=== PATIENT | male | born 1960 | race Caucasian/White ===

== ENCOUNTER → 2016-10-28 | Outpatient (CLI) | payer OTHER ==
--- NOTE | 2016-10-29 10:52 | ECHOF ---
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 This was a technically good study. The left ventricular size is normal. There is moderate concentric left ventricular hypertrophy. Overall left ventricular systolic function is normal with, an EF between 55 - 60 %. The right ventricle is mildly enlarged. LA is moderately dilated 34-39 ml/m2 The right atrium is normal in size. The aortic valve is trileaflet and appears structurally normal. The mitral valve is normal. Mild mitral regurgitation is present. Trace tricuspid regurgitation present. The right ventricular systolic pressure, as measured by Doppler, is 32.70mmHg. Trace/mild (physiologic) pulmonic regurgitation. The aortic root size is normal. Normal inferior vena cava with normal inspiratory collapse consistent with estimated right atrial pressure of 5 mmHg. There is no pericardial effusion. CONCLUSIONS -------- 1. Sinus rhythm. 2. Trace tricuspid regurgitation present. 3. The right ventricular systolic pressure, as measured by Doppler, is 32.70mmHg. 4. Trace/mild (physiologic) pulmonic regurgitation. 5. The aortic root size is normal. 6. Normal inferior vena cava with normal inspiratory collapse consistent with estimated right atrial pressure of 5 mmHg. 7. There is no pericardial effusion. 8. This was a technically good study. 9. There is moderate concentric left ventricular hypertrophy. 10. Overall left ventricular systolic function is normal with, an EF between 55 - 60 %. 11. The right ventricle is mildly enlarged. 12. LA is moderately dilated 34-39 ml/m2 13. The aortic valve is trileaflet and appears structurally normal. 14. The mitral valve is normal. 15. Mild mitral regurgitation is present. OPERATOR SUPPLY: Kala Llanes RDCS
== END ==
LOC: RADECHMAIN 15:33
PROVIDERS: ATTEND Physician Assistant
DX: I08.1 Rheumatic disorders of both mitral and tricuspid valves (principal); I51.7 Cardiomegaly
CPT/HCPCS: 93306

== ENCOUNTER → 2017-04-01 | Outpatient (CLI) | payer OTHER ==
--- NOTE | 2017-04-01 08:29 | MR ---
EXAMINATION TYPE: MR cervical spine wo con DATE OF EXAM: 04/01/2017 COMPARISON: CT scan cervical spine 10/20/2013 HISTORY: cervicalgia TECHNIQUE: Multiplanar, multisequence images of the cervical spine were acquired. C2-C3: Uncovertebral joint hypertrophy greater on the left with disc bulging capped by spur. Marked l eft-sided facet arthropathy results in moderate to severe left-sided foraminal encroachment. No Canal stenosis. C3-C4: Degenerative disc disease with facet arthropathy greater on the left. Bilateral uncovertebral joint hypertrophy and mild bilateral foraminal encroachment. Left paracentral disc bulging but no can al stenosis. C4-C5: Degenerative disc disease with bilateral facet arthropathy and uncovertebral joint hypertrophy with mild bilateral foraminal encroachment. No Canal stenosis. Ligamentum flavum hypertrophy noted. C5-C6: Severe degenerative disc disease with osteophytic spur formation and cervical spondylosis. Fac et arthropathy and uncovertebral joint hypertrophy with posterior spondylosis and disc bulging capped by spur. Findings result in borderline canal stenosis. Moderate bilateral foraminal encroachment. C6-C7: Severe degenerative disc disease with diffuse disc bulging. There is facet arthropathy. Modera te to severe right-sided foraminal encroachment and severe left-sided foraminal encroachment. Broad-b ased disc protrusion capped by spur results in significant canal stenosis. C7-T1: Severe degenerative disc disease with diffuse disc bulging more focal left paracentral disc pr otrusion. Mild to moderate effacement of thecal sac and mild canal stenosis. Mild to moderate bilater al foraminal encroachment. Cervical segments are intact. There is normal alignment. Abnormal signal within the spinal cord is s een at C7-T1 appears well-circumscribed and may represent a small syrinx. Myelomalacia prominent cent ral canal also the differential diagnosis. IMPRESSION: 1. Abnormal signal in the spinal cord at C7-T1 may relate to small syrinx, prominent central canal, o r myelomalacia. 2. Multilevel severe degenerative disc disease with disc bulging or protrusion as discussed above fin dings suggestive of canal stenosis C5-6 and C6-C7 3 multilevel foraminal encroachment as discussed ab ove most marked findings at C5-6.
== END | disposition home or self-care (01) ==
LOC: RADMRIMAIN 06:37
PROVIDERS: ATTEND Physical Medicine & Rehabilitation
DX: M50.11 Cervical disc disorder with radiculopathy, high cervical region (principal); M25.512 Pain in left shoulder
CPT/HCPCS: 72141

== ENCOUNTER 2017-08-09 01:49 | Emergency (ER) | payer OTHER ==
[2017-08-09 02:00] VITALS: RESP 18
--- NOTE | 2017-08-09 02:29 | XR ---
EXAM: XR Left Hand Complete, 3 or More Views CLINICAL HISTORY: Reason: Pain TECHNIQUE: Frontal, lateral and oblique views of the left hand. COMPARISON: No relevant prior studies available. FINDINGS: Bones/joints: Unremarkable. No acute fracture. No dislocation. Soft tissues: Unremarkable. IMPRESSION: No acute osseous findings.
--- NOTE | 2017-08-09 02:57 | ED ---
Wound/Laceration HPI - General Chief Complaint: Wound/Laceration Stated Complaint: Hand Laceration Time Seen by Provider: 08/09/17 02:02 Source: patient, RN notes reviewed, old records reviewed Mode of arrival: ambulatory Limitations: no limitations - History of Present Illness Initial Comments: This is a 57 year old male with CC of left thumb laceration. Patient was cutting marie for a project and the knife slipped. Patient reports that he has full range of motion of thumb. REports he had a tetanus shot last month. Reports he could not get this to stop bleeding. Denies any other symptoms. - Related Data Home Medications Medication Instructions Recorded Confirmed Dextroamphetamine/Amphetamine 30 mg PO DAILY 10/16/15 08/09/17 [Adderall] Allergies Allergy/AdvReac Type Severity Reaction Status Date / Time No Known Allergies Allergy Verified 08/09/17 02:01 Review of Systems ROS Statement: Those systems with pertinent positive or pertinent negative responses have been documented in the HPI. ROS Other: All systems not noted in ROS Statement are negative. Past Medical History Additional Past Medical History / Comment(s): kidney stones, History of Any Multi-Drug Resistant Organisms: None Reported Past Surgical History: Cholecystectomy, Orthopedic Surgery Past Psychological History: No Psychological Hx Reported Smoking Status: Never smoker Past Alcohol Use History: None Reported Past Drug Use History: None Reported General Exam - General Exam Comments Initial Comments: This is a 57 year old male. No distress. Limitations: no limitations General appearance: alert, in no apparent distress Head exam: Present: atraumatic, normocephalic, normal inspection ENT exam: Present: normal exam, mucous membranes moist Neck exam: Present: normal inspection. Absent: tenderness, meningismus, lymphadenopathy Respiratory exam: Present: normal lung sounds bilaterally. Absent: respiratory distress, wheezes, rales, rhonchi, stridor Extremities exam: Present: normal inspection, full ROM, normal capillary refill. Absent: tenderness, pedal edema, joint swelling, calf tenderness Left Forearm Wrist exam: Present: normal inspection, full ROM Hand Wrist exam: Present: full ROM, laceration (3cm laceration over posterior thumb. ). Absent: normal inspection, tenderness, swelling Hand L/R Back: 1 - 3cm laceration Neuro motor exam: Present: wrist extension intact, thumb opposition intact, thumb IP flexion intact, thumb adduction intact, fingers 2-5 abduction intact Vascular: Present: normal capillary refill Back exam: Present: normal inspection Neurological exam: Present: alert, oriented X3, CN II-XII intact Psychiatric exam: Present: normal affect, normal mood Skin exam: Present: warm, dry, intact, normal color. Absent: rash Course Vital Signs 08/09/17 08/09/17 01:56 03:08 Temperature 98.2 F 97.8 F Pulse Rate 66 69 Respiratory 18 18 Rate Blood Pressure 144/86 135/73 O2 Sat by Pulse 96 97 Oximetry Procedures - Laceration Laceration #1 Site: hand (left thumb) Size (cm): 3 Description: linear Depth: simple, single layer Anesthetic Used: lidocaine 1% Anesthesia Technique: local infiltration Amount (mls): 2 Pre-repair: wound explored Type of Sutures: nylon Size of Sutures: 5-0 Number of Sutures: 6 Technique: simple, interrupted Patient Tolerated Procedure: well, no complications Medical Decision Making - Medical Decision Making Wound Melia is a 57 year old male with CC of left thumb laceration. Patient was cutting marie for a project and the knife slipped. Patient reports that he has full range of motion of thumb. Hand xray is negative. Wound was thoroughly irrigated with saline and soap. Patient wound was well approximated with 6 sutures and dressing applied. Patient advised to monitor for infeciton and suture care instructions. Patient agrees to treatment plan and will comply, return parameters discussed. - Radiology Data Radiology results: report reviewed Hand xray is negative. Disposition Clinical Impression: Laceration of left thumb Disposition: HOME SELF-CARE Condition: Good Instructions: Care For Your Stitches (ED), Laceration (ED) Additional Instructions: Please return to the emergency room in 8-10 days to have sutures removed. Please leave wound covered for the first 24-48 hours and then leave open to air after that time. Please use clean soap and water to clean the suture area to prevent scabbing over the top of your sutures. Please watch for any signs of infection which may include but not limited to increased pain, swelling, redness , fever or chills. Please return to the emergency room if any signs of infection do occur. Please return to the emergency room for any other concerns or complications. Referrals: Hubert Dougherty MD [Primary Care Provider] - 1-2 days Time of Disposition: 02:56
[2017-08-09 03:10] VITALS: BP 135/73; PULSE 69; TEMP 97.8
== END 2017-08-09 03:10 | disposition home or self-care (01) ==
LOC: EC 01:49
DX: S61.012A Laceration without foreign body of left thumb without damage to nail, initial encounter (principal); Z79.899 Other long term (current) drug therapy; W26.0XXA Contact with knife, initial encounter; Y93.89 Activity, other specified
CPT/HCPCS: 12002; 99283

== ENCOUNTER → 2018-09-18 | Outpatient (CLI) | payer OTHER ==
--- NOTE | 2018-09-18 10:50 | MR ---
EXAMINATION TYPE: MR lumbar spine wo con DATE OF EXAM: 09/18/2018 COMPARISON: None HISTORY: LOWER BACK PAIN TECHNIQUE: Multiplanar, multisequence images of the lumbar spine were acquired. L1-L2: Posterior broad-based disc bulge causes mild anterior mass effect on the thecal sac. No signif icant foraminal encroachment or central stenosis. L2-L3: Posterior broad-based disc bulge causes only slight anterior mass effect on the thecal sac. No significant central stenosis or foraminal encroachment. L3-L4: Circumferential posterior broad-based disc bulge causes anterior mass effect on the thecal sac somewhat eccentric towards the right likely contributed by the scoliosis. Mild right-sided foraminal encroachment. Mild central stenosis. L4-L5: Broad-based posterior disc bulge causes anterior mass effect on the thecal sac. Facet arthropa thy with hypertrophy of ligamentum flavum results in a trefoil appearance of the thecal sac. Circumfe rential extension of endplate disc complex results in foraminal encroachment bilaterally. There is mi ld central stenosis. L5-S1: Small central posterior disc bulge contacts the anterior thecal sac. Facet arthropathy with hy pertrophy of the ligamentum flavum encroaches somewhat on the lateral recesses, there is some posteri or lateral mass effect on the thecal sac. No significant central stenosis. Mild foraminal encroachmen t due to slight anterolisthesis. The pedicle on the left at L5 is increased signal on T1 and T2-weigh osman sequences likely due to hemangioma. Lumbar segments are intact. No paraspinal masses are identified. Conus medullaris has a normal appe arance. There is a mild spinal curvature. Multilevel spondylosis is present with endplate discogenic marrow signal change. Loss of disc height and signal present at the intervertebral levels compatible with disc desiccation and degenerative disc disease. Cortical cyst noted within the left kidney is in completely evaluated. IMPRESSION: Degenerative disc disease, facet arthropathy, scoliosis and foraminal encroachment as described. Uche tional findings above.
== END ==
LOC: RADMRIMAIN 08:31
PROVIDERS: ATTEND Physical Medicine & Rehabilitation
DX: M51.36 Other intervertebral disc degeneration, lumbar region (principal); M46.96 Unspecified inflammatory spondylopathy, lumbar region; M41.86 Other forms of scoliosis, lumbar region
CPT/HCPCS: 72148

== ENCOUNTER → 2019-08-13 | Outpatient (CLI) | payer OTHER ==
[2019-08-13 13:16] LABS: Basophils % (A) 1 %; Eosinophils # (A) 0.4 k/uL (0-0.7); Eosinophils % (A) 6 %; HCT 42.3 % (39.0-53.0); HGB 13.9 gm/dL (13.0-17.5); Lymphocytes # (A) 2.1 k/uL (1.0-4.8); Lymphocytes % (A) 30 %; MCH 30.4 pg (25.0-35.0); MCHC 32.8 g/dL (31.0-37.0); MCV 92.7 fL (80.0-100.0); Mean Platelet Volume 6.6; Monocytes # (A) 0.4 k/uL (0-1.0); Monocytes % (A) 6 %; Neutrophils # (A) 3.9 k/uL (1.3-7.7); Neutrophils % (A) 56 %; Platelet Count 267 k/uL (150-450); RBC 4.56 m/uL (4.30-5.90); RDW 12.8 % (11.5-15.5); WBC 6.9 k/uL (3.8-10.6)
[2019-08-13 14:51] LABS: Erythrocyte Sedimentation Rate 11 mm/hr (0-15)
[2019-08-13 18:46] LABS: African American GFR (CKD) 106.5 (60.0-200.0); Albumin 4.4 g/dL (3.80-4.90); Albumin/Globulin Ratio 2.2 (1.60-3.17); Anion Gap 6.1 mmol/L (4.00-12.00); BUN/Creat Ratio 16.67 Ratio (12.00-20.00); C Reactive Protein 0.4 mg/dL (0.0-0.8); Calcium 9.4 mg/dL (8.7-10.3); Carbon Dioxide 29.9 mmol/L (21.6-31.8); Chol/HDL Ratio 4.06; LDL Cholesterol,Calculated 114.2 mg/dL (0.0-131.0); Magnesium 1.9 mg/dL (1.5-2.4); Non-African American GFR(CKD) 91.9 (60.0-200.0); Phosphorus 3.7 mg/dL (2.4-5.1); Potassium 4.5 mmol/L (3.5-5.5); Total Bilirubin 0.6 mg/dL (0.3-1.2); Total Protein 6.4 g/dL (6.2-8.2); VLDL Calculation 29.8 mg/dL (5.00-40.00)
== END | disposition home or self-care (01) ==
LOC: LABWHC1 12:01
PROVIDERS: ATTEND Internal Medicine
DX: N40.0 Benign prostatic hyperplasia without lower urinary tract symptoms (principal); N20.0 Calculus of kidney; I10 Essential (primary) hypertension; E78.5 Hyperlipidemia, unspecified; E03.9 Hypothyroidism, unspecified; E87.8 Other disorders of electrolyte and fluid balance, not elsewhere classified; E55.9 Vitamin D deficiency, unspecified
CPT/HCPCS: 36415; 80053; 80061; 82306; 82550; 83735; 84100; 84153; 84443; 85025; 85652; 86140

== ENCOUNTER → 2020-11-24 | Outpatient (CLI) | payer OTHER ==
--- NOTE | 2020-11-24 09:55 | MR ---
EXAMINATION TYPE: MR knee RT wo con DATE OF EXAM: 11/24/2020 COMPARISON: None HISTORY: R knee pain TECHNIQUE: Multiplanar, multisequence imaging of the right knee is performed without IV contrast. FINDINGS: MEDIAL MENISCUS: Posterior horn medial meniscus shows a focal tear, coronal images #24 and 25, some i ncreased signal is present within the posterior horn of the medial meniscus extending into the body LATERAL MENISCUS: Anterior and posterior horns are intact without tear. CRUCIATE LIGAMENTS: There is some increased intrinsic signal within the anterior cruciate ligament, s agittal image #19, no jenny disruption, findings could represent a partial tear or ganglion, degenera tive change COLLATERAL LIGAMENTS: The medial collateral ligament and lateral collateral ligament complex are inta ct and unremarkable. EXTENSOR MECHANISM: Visualized quadriceps and patellar tendons are intact. EFFUSION: Minimal joint effusion POPLITEAL CYST: There is abnormal signal along the distribution of the thigh posteriorly and mediall y, semimembranosus tendon shows abnormal increased intrinsic signal in T2-weighted sequences, cluster of grapes appearance present along the tendon at the distal thigh may represent a ganglion or possib ly loculated fluid, coronal image #31, axial image 30, overall the abnormal signal measures approxima tely 4.6 x 2.3 cm in AP dimension by 1.4 cm transverse dimension. TRICOMPARTMENT SPACES: Maintained CARTILAGE: Grade III chondromalacia changes are present at the medial femoral condyle, grade II chond romalacia suspected in the lateral compartment, grade II-III chondromalacia posterior patella. BONE MARROW SIGNAL: No focal abnormal marrow signal is appreciated. OTHER: No additional significant abnormality is appreciated. IMPRESSION: Tear the posterior horn the medial meniscus. Osteoarthritis. Abnormal T2 bright signal along the semi membranosus tendon as described. Small joint effusion. Additional findings above.
== END | disposition home or self-care (01) ==
LOC: RADMRIMAIN 06:59
PROVIDERS: ATTEND Orthopaedic Surgery Sports Medicine
DX: M23.321 Other meniscus derangements, posterior horn of medial meniscus, right knee (principal); M17.11 Unilateral primary osteoarthritis, right knee; M22.41 Chondromalacia patellae, right knee

== ENCOUNTER → 2022-07-12 | Outpatient (CLI) | payer OTHER ==
[2022-07-12 14:32] LABS: Basophils # (A) 0.04 X 10*3/uL (0.00-0.10); Basophils % (A) 0.5 %; Eosinophils # (A) 0.55 X 10*3/uL (0.04-0.35); Eosinophils % (A) 6.9 %; HCT 44.6 % (39.6-50.0); HGB 14.6 g/dL (13.0-17.0); Immature Grans, Automated 0.3 %; Lymphocytes # (A) 2.87 X 10*3/uL (0.90-5.00); MCH 31.5 pg (27.0-32.0); MCHC 32.7 g/dL (32.0-37.0); MCV 96.1 fL (80.0-97.0); Mean Platelet Volume 8.9 fL (9.5-12.2); Monocytes # (A) 0.57 X 10*3/uL (0.20-1.00); Monocytes % (A) 7.2 %; NRBC Per 100 WBC 0 /100 WBCS (0.0-0.0); Neutrophils # (A) 3.92 X 10*3/uL (1.80-7.70); Neutrophils % (A) 49.1 %; Platelet Count 264 X 10*3/uL (140-440); RBC 4.64 X 10*6/uL (4.40-5.60); RDW 12.4 % (11.5-14.5); WBC 7.97 X 10*3/uL (4.50-10.00)
[2022-07-12 14:48] LABS: Erythrocyte Sedimentation Rate 6 mm/Hr (0-20)
[2022-07-12 15:28] LABS: ALT 23 U/L (10-49); AST 29 U/L (14-35); African American GFR (CKD) 94.4 (60.0-200.0); Albumin 4.4 g/dL (3.8-4.9); Albumin/Globulin Ratio 1.67 (1.60-3.17); Alkaline Phosphatase 83 U/L (41-126); BUN/Creat Ratio 16.48 Ratio (12.00-20.00); Blood Urea Nitrogen 16.1 mg/dL (9.0-27.0); C Reactive Protein <0.30 mg/dL (0.00-0.80); Calcium 9.7 mg/dL (8.7-10.3); Carbon Dioxide 24.6 mmol/L (20.0-27.5); Chloride 105 mmol/L (96-109); Chol/HDL Ratio 3.04 Ratio; Creatine Kinase 74 U/L (35-257); Globulin 2.6 g/dL (1.6-3.3); Glucose 119 mg/dL (70-110); Non-African American GFR(CKD) 81.5 (60.0-200.0); Potassium 4.2 mmol/L (3.5-5.5); Sodium 142 mmol/L (135-145); Uric Acid 4.7 mg/dL (3.7-8.7)
== END | disposition home or self-care (01) ==
LOC: LABWHC1 08:39
PROVIDERS: ATTEND Internal Medicine
DX: Z00.00 Encounter for general adult medical examination without abnormal findings (principal); N40.0 Benign prostatic hyperplasia without lower urinary tract symptoms; I10 Essential (primary) hypertension; E78.5 Hyperlipidemia, unspecified; E03.9 Hypothyroidism, unspecified; E55.9 Vitamin D deficiency, unspecified; M10.9 Gout, unspecified
CPT/HCPCS: 36415; 80053; 80061; 82306; 82550; 84153; 84403; 84443; 84550; 85025; 85652; 86140

== ENCOUNTER → 2022-07-26 | Outpatient (CLI) | payer OTHER ==
--- NOTE | 2022-07-26 11:42 | XR ---
EXAMINATION TYPE: XR chest 2V DATE OF EXAM: 07/26/2022 COMPARISON: Chest x-ray November 13, 2012 HISTORY: RSV and influenza A/B. Bronchitis. TECHNIQUE: Frontal and lateral views of the chest are obtained. FINDINGS: There is no suspicious focal air space opacity, pleural effusion, or pneumothorax seen. T he cardiac silhouette size is stable and within normal limits. Multilevel spurring in the spine is se en. IMPRESSION: No acute pulmonary infiltrate. No significant change from prior.
[2022-07-26 18:48] LABS: Basophils # (A) 0.03 X 10*3/uL (0.00-0.10); Basophils % (A) 0.3 %; Eosinophils # (A) 0.02 X 10*3/uL (0.04-0.35); Eosinophils % (A) 0.2 %; HCT 42.9 % (39.6-50.0); HGB 13.9 g/dL (13.0-17.0); Immature Grans, Automated 0.4 %; Lymphocytes # (A) 1.82 X 10*3/uL (0.90-5.00); Lymphocytes % (A) 19.9 %; MCH 30.5 pg (27.0-32.0); MCHC 32.4 g/dL (32.0-37.0); MCV 94.1 fL (80.0-97.0); Mean Platelet Volume 8.7 fL (9.5-12.2); Monocytes # (A) 0.59 X 10*3/uL (0.20-1.00); Monocytes % (A) 6.4 %; NRBC Per 100 WBC 0 /100 WBCS (0.0-0.0); Neutrophils # (A) 6.65 X 10*3/uL (1.80-7.70); Neutrophils % (A) 72.8 %; Platelet Count 279 X 10*3/uL (140-440); RBC 4.56 X 10*6/uL (4.40-5.60); RDW 11.9 % (11.5-14.5); WBC 9.15 X 10*3/uL (4.50-10.00)
== END | disposition home or self-care (01) ==
LOC: LABWHC1 11:17
PROVIDERS: ATTEND Internal Medicine
DX: J40 Bronchitis, not specified as acute or chronic (principal); J11.1 Influenza due to unidentified influenza virus with other respiratory manifestations
CPT/HCPCS: 36415; 71046; 85025; 87502; 87634

== ENCOUNTER → 2024-02-02 | Outpatient (CLI) | payer MEDICARE ==
--- NOTE | 2024-02-03 09:34 | CA ---
Transthoracic Echo Report Name: Lasha Simms Age: 63 Gender: M : 1960 Exam Date: 02/02/2024 18:18 Exam Location: [facility] Ht (in): 73 Wt (lb): 220 Ordering Physician: Camilo Victoria MD Attending/Referring Phys: Furniture Salesperson Kala Llanes RDCS Procedure CPT: Indications: R94.31 abn ekg Cardiac Hx: Technical Quality: Good Contrast 1: Total Dose (mL): Contrast 2: Total Dose (mL): MEASUREMENTS (Male / Female) Normal Values 2D ECHO LV Diastolic Diameter PLAX 5.8 cm 4.2 - 5.9 / 3.9 - 5.3 cm LV Systolic Diameter PLAX 3.9 cm IVS Diastolic Thickness 1.2 cm 0.6 - 1.0 / 0.6 - 0.9 cm LVPW Diastolic Thickness 1.1 cm 0.6 - 1.0 / 0.6 - 0.9 cm LV Relative Wall Thickness 0.4 RV Internal Dim ED PLAX 3.4 cm LVOT Diameter 2.9 cm LA Systolic Diameter LX 3.6 cm 3.0 - 4.0 / 2.7 - 3.8 cm LV Diastolic Volume MOD 4C 177.4 cm??? LV Systolic Volume MOD 4C 64.5 cm??? LV Ejection Fraction MOD 4C 63.7 % LV Cardiac Index MOD 4C 3308.7 cm???/min???m??? LV Diastolic Length 4C 10.9 cm LV Systolic Length 4C 8.5 cm LV Diastolic Volume MOD 2C 180.3 cm??? LV Systolic Volume MOD 2C 64.3 cm??? LV Ejection Fraction MOD 2C 64.4 % LV Cardiac Index MOD 2C 3401.0 cm???/min???m??? LV Diastolic Length 2C 11.1 cm LV Systolic Length 2C 8.9 cm LA Volume 61.0 cm??? 18 - 58 / 22 - 52 cm??? LA Volume Index 26.7 cm???/m??? 16 - 28 cm???/m??? M-MODE Aortic Root Diameter MM 4.1 cm AV Cusp Separation MM 1.4 cm DOPPLER AV Peak Velocity 133.7 cm/s AV Peak Gradient 7.2 mmHg MV Area PHT 3.7 cm??? Mitral E Point Velocity 116.6 cm/s Mitral A Point Velocity 103.7 cm/s Mitral E to A Ratio 1.1 MV Deceleration Time 202.3 ms FINDINGS Left Ventricle Left ventricular ejection fraction is estimated at 60-65 %. Mildly increased septal wall thickness. Left ventricular cavity size normal. Normal left ventricular wall motion. Right Ventricle Normal RV size and systolic function. Unable to estimate the right ventricular systolic pressure. Right Atrium Normal right atrial size. No right atrial thrombus or mass seen. Left Atrium Mildly increased left atrial volume. No left atrial thrombus or mass present. Mitral Valve Structurally normal mitral valve. No mitral stenosis. No evidence for mitral valve prolapse. Trace to mild mitral regurgitation. Aortic Valve Trileaflet aortic valve. Thickened aortic valve without stenosis. No aortic regurgitation. Tricuspid Valve Structurally normal tricuspid valve. No tricuspid regurgitation. Pulmonic Valve Structurally normal pulmonic valve. No pulmonic regurgitation. Pericardium No pericardial effusion. No pleural effusion. Aorta Mild aortic dilatation at the level of the sinuses of valsalva 41 mm CONCLUSIONS LVEF 60 to 65% Mild asymmetrical septal hypertrophy. Calcific thickening of aortic valve leaflets with no significant regurgitation or stenosis Mild mitral regurg Mild LA dilation Normal RV size and systolic function. Previewed by: Dr Kelvin Angeles (Electronically Signed) Final Date: 03 February 2024 09:34
== END | disposition home or self-care (01) ==
LOC: RADECHMAIN 18:03
PROVIDERS: ATTEND Internal Medicine
DX: R94.31 Abnormal electrocardiogram [ECG] [EKG] (principal); I34.0 Nonrheumatic mitral (valve) insufficiency
CPT/HCPCS: 93306

== ENCOUNTER → 2024-02-24 | Outpatient (CLI) | payer MEDICARE ==
--- NOTE | 2024-02-26 04:30 | MR ---
EXAMINATION TYPE: MR knee RT wo con DATE OF EXAM: 02/24/2024 COMPARISON: Prior MRI right knee November 24, 2020 HISTORY: Bilateral knee pain locking and swelling for 2 months, medial meniscus repair on right knee. TECHNIQUE: Multiplanar, multisequence images of the knee is performed without IV contrast. FINDINGS: MEDIAL MENISCUS: Medial extrusion medial meniscus on coronal images. Partial resection of the deeper aspect of the medial meniscus. Residual posterior horn shows abnormal signal extending to articular s urface LATERAL MENISCUS: Anterior and posterior horns are intact without tear. CRUCIATE LIGAMENTS: The anterior and posterior cruciate ligaments are intact and unremarkable. COLLATERAL LIGAMENTS: The medial collateral ligament and lateral collateral ligament complex are inta ct and unremarkable. EXTENSOR MECHANISM: Visualized quadriceps and patellar tendons are intact. EFFUSION: No significant suprapatellar joint effusion. POPLITEAL CYST: No popliteal/luu cyst. TRICOMPARTMENT SPACES: Moderate tricompartment joint space loss and spurring is more prominent versus prior MRI CARTILAGE: Chondromalacia patella with cartilaginous loss along the posterior patellar pole. Cartilag inous loss most prominent medial tibiofemoral compartment with areas of full-thickness loss now ident ified. BONE MARROW SIGNAL: Heterogeneous diminished T1 and increased T2 signal involving distal medial femor al condyle. OTHER: No additional significant abnormality is appreciated. IMPRESSION: 1. Partial meniscectomy changes are now present. There is a full-thickness tear of the remnant tobacco warehouse agent ior horn of the medial meniscus noted. 2. Tricompartment degenerative changes most prominent medial tibiofemoral compartment where moderate to advanced findings are present as detailed above. Interval degenerative progression from 2020 MRI n oted.
--- NOTE | 2024-02-26 04:33 | MR ---
EXAMINATION TYPE: MR knee LT wo con DATE OF EXAM: 02/24/2024 COMPARISON: NONE HISTORY: Bilateral knee pain with locking and swelling for 2 months TECHNIQUE: Multiplanar, multisequence images of the knee is performed without IV contrast. FINDINGS: MEDIAL MENISCUS: Horizontal increased central body into posterior horn does not definitively extend t o articular surface. LATERAL MENISCUS: Anterior and posterior horns are intact without tear. CRUCIATE LIGAMENTS: The anterior and posterior cruciate ligaments are intact and unremarkable. COLLATERAL LIGAMENTS: The medial collateral ligament and lateral collateral ligament complex are inta ct and unremarkable. EXTENSOR MECHANISM: Visualized quadriceps and patellar tendons are intact. EFFUSION: No significant suprapatellar joint effusion. POPLITEAL CYST: No popliteal/luu cyst. TRICOMPARTMENT SPACES: Mild to moderate tricompartment joint space loss and mild spurring. CARTILAGE: Some cartilaginous loss medial tibiofemoral compartment. No full-thickness cartilaginous l oss is seen. BONE MARROW SIGNAL: No focal abnormal marrow signal is appreciated. OTHER: No additional significant abnormality is appreciated. IMPRESSION: 1. [id number] tricompartmental degenerative changes most prominent in the medial tibiofemoral c ompartment likely on the basis of osteoarthritis. Findings less prominent in the left knee versus the opposite right knee. 2. Probable intrasubstance tear posterior horn into the central body of the medial meniscus. No full- thickness meniscal or ligamentous tear is seen.
== END | disposition home or self-care (01) ==
LOC: RADMRIMAIN 16:24
PROVIDERS: ATTEND Orthopaedic Surgery
DX: S83.241A Other tear of medial meniscus, current injury, right knee, initial encounter (principal); M17.11 Unilateral primary osteoarthritis, right knee; Z47.89 Encounter for other orthopedic aftercare

== ENCOUNTER 2024-04-20 07:57 | Emergency (ER) | payer MEDICARE ==
--- NOTE | 2024-04-20 08:14 | ED ---
Abdominal Pain HPI - General Chief Complaint: Abdominal Pain Stated Complaint: abd pain Time Seen by Provider: 04/20/24 08:05 Source: patient, RN notes reviewed Mode of arrival: ambulatory Limitations: no limitations - History of Present Illness Initial Comments: This is a 63-year-old male who presents to the emergency department for left flank and left lower quadrant pain. States that it started this morning. He reports some urinary urgency. He has a history of chronic back pain, but states that that is right-sided and feels different. Also has a history of kidney stones, but states that that was so long ago he cannot remember what it feels li ke. Pain seems to start in the back and wrap around to the left lower quadrant. Denies any diarrhea or constipation. Feels nauseous but has not yet thrown up. MD Complaint: abdominal pain, flank pain - Related Data Home Medications Medication Instructions Recorded Confirmed Dextroamphetamine/Amphetamine 30 mg PO DAILY 10/16/15 08/09/17 [Adderall] Allergies Allergy/AdvReac Type Severity Reaction Status Date / Time No Known Allergies Allergy Verified 04/20/24 08:02 Review of Systems ROS Statement: Those systems with pertinent positive or pertinent negative responses have been documented in the HPI. ROS Other: All systems not noted in ROS Statement are negative. Past Medical History Additional Past Medical History / Comment(s): kidney stones, History of Any Multi-Drug Resistant Organisms: None Reported Past Surgical History: Cholecystectomy, Orthopedic Surgery Past Psychological History: No Psychological Hx Reported Smoking Status: Never smoker Past Alcohol Use History: None Reported Past Drug Use History: None Reported General Exam Limitations: no limitations General appearance: alert, in distress Head exam: Present: atraumatic, normocephalic, normal inspection Respiratory exam: Present: normal lung sounds bilaterally. Absent: respiratory distress, wheezes, rales, rhonchi, stridor Cardiovascular Exam: Present: regular rate, normal rhythm, normal heart sounds. Absent: systolic murmur, diastolic murmur, rubs, gallop, clicks GI/Abdominal exam: Present: soft, tenderness (LLQ), normal bowel sounds. Absent: distended Back exam: Present: CVA tenderness (L). Absent: CVA tenderness (R) Neurological exam: Present: alert, oriented X3, CN II-XII intact Psychiatric exam: Present: normal affect, normal mood Skin exam: Present: warm, dry, intact, normal color. Absent: rash Course Vital Signs 04/20/24 04/20/24 07:58 09:25 Temperature 97.4 F L 98.3 F Pulse Rate 70 69 Respiratory 20 18 Rate Blood Pressure 191/95 169/96 O2 Sat by Pulse 100 95 Oximetry Medical Decision Making - Medical Decision Making This is a 63-year-old male who presents to the emergency department for abdominal pain and back pain. Was pt. sent in by a medical professional or institution? @ -No Did you speak to anyone other than the patient for history? @ -No Did you review nursing and triage notes? @ -Yes, and I agree, it is accurate with regards to the patient's symptoms. Were old charts reviewed? @ -No Differential Diagnosis? @ -Differential Abdominal Pain Men: Appendicitis, cholecystitis, diverticulosis, ischemic bowel, pancreatitis, hepatitis, UTI, gastroenteritis, AAA, incarcerated hernia, bowel obstruction, constipation, inflammatory bowel, hepatitis, peptic ulcer disease, splenic infarction, perforated viscus, testicular torsion, this is not meant to be an all-inclusive list EKG interpreted by me (3pts min.)? @ -Not obtained X-rays interpreted by me (1pt min.)? @ -Not obtained CT interpreted by me (1pt min.)? @ -CT scan of the abdomen and pelvis obtained. My interpretation identifies a left ureteral calculus. U/S interpreted by me (1pt. min.)? @ -Not obtained What testing was considered but not performed? (CT, X-rays, U/S, labs)? Why? @ -None What meds were considered but not given? Why? @ -None Did you discuss the management of the patient with other professionals? @ -No Did you reconcile home meds? @ -No Was smoking cessation discussed for >3mins.? @ -No Was critical care preformed (if so, how long)? @ -No Were there social determinants of health that impacted care today? How? (Homelessness, low income, unemployed, alcoholism, drug addiction, transportation, low edu. Level, literacy, decrease access to med. care, skilled nursing, rehab)? @ -No Was there de-escalation of care discussed even if they declined? (Discuss DNR or withdrawal of care, Hospice)? @ -No What co-morbidities impacted this encounter? (DM, HTN, Smoking, COPD, CAD, Cancer, CVA, Hep., AIDS, mental health diagnosis, sleep apnea, morbid obesity)? @ -Chronic back pain Was patient admitted / discharged? @ -Discharged. Lab work demonstrate signs of dehydration and was otherwise unremarkable. Urinalysis demonstrates a small amount of blood but is negative f or signs of infection. CT scan of the abdomen and pelvis demonstrates left- sided hydroureteronephrosis with a 1.1 cm x 6.4 mm calculus at the left UVJ. Findings reviewed with the patient. Symptoms well-controlled in the emergency department. States that he knows how to treat these at home himself with various methods and declined the need for any pain or nausea medication. States that he does not like pain medication but does have it at home if needed. Advised to follow-up with urology for further evaluation. Patient discharged home in stable condition. Case discussed with ED attending Dr. Moreland. Return precautions reviewed in depth, the patient is instructed to return to the emergency department with any new, worsening, or concerning symptoms. Patient verbalized understanding. Undiagnosed new problem with uncertain prognosis? @ -None Drug Therapy requiring intensive monitoring for toxicity (Heparin, Nitro, Insulin, Cardizem)? @ -None Were any procedures done? @ -None Diagnosis/symptom? @ -Left ureteral calculus, hydronephrosis Acute, or Chronic, or Acute on Chronic? @ -Acute Uncomplicated (without systemic symptoms) or Complicated (systemic symptoms)? @ -Uncomplicated Side effects of treatment? @ -None Exacerbation, Progression, or Severe Exacerbation] @ -Not applicable Poses a threat to life or bodily function? @ -No - Lab Data Result diagrams: 04/20/24 08:16 04/20/24 08:16 Lab Results 04/20/24 04/20/24 04/20/24 Range/Units 08:16 08:16 08:16 WBC 7.8 (3.8-10.6) k/uL RBC 4.64 (4.30-5.90) m/uL Hgb 14.8 (13.0-17.5) gm/dL Hct 44.0 (39.0-53.0) % MCV 94.8 (80.0-100.0) fL MCH 31.8 (25.0-35.0) pg MCHC 33.6 (31.0-37.0) g/dL RDW 13.1 (11.5-15.5) % Plt Count 316 (150-450) k/uL MPV 6.7 Neutrophils % 65 % Lymphocytes % 24 % Monocytes % 6 % Eosinophils % 4 % Basophils % 1 % Neutrophils # 5.0 (1.3-7.7) k/uL Lymphocytes # 1.8 (1.0-4.8) k/uL Monocytes # 0.5 (0-1.0) k/uL Eosinophils # 0.3 (0-0.7) k/uL Basophils # 0.1 (0-0.2) k/uL Sodium 141 (137-145) mmol/L Potassium 4.3 (3.5-5.1) mmol/L Chloride 106 (98-107) mmol/L Carbon Dioxide 27 (22-30) mmol/L Anion Gap 8 mmol/L BUN 28 H (9-20) mg/dL Creatinine 1.09 (0.66-1.25) mg/dL Est GFR (CKD-EPI)AfAm 82 (>60 ml/min/1.73 sqM) Est GFR (CKD-EPI)NonAf 71 (>60 ml/min/1.73 sqM) Glucose 131 H (74-99) mg/dL Plasma Lactic Acid [place] (0.7-2.0) mmol/L Calcium 9.9 (8.4-10.2) mg/dL Total Bilirubin 1.0 (0.2-1.3) mg/dL AST 31 (17-59) U/L ALT 28 (4-49) U/L Alkaline Phosphatase 65 (38-126) U/L Total Protein 7.2 (6.3-8.2) g/dL Albumin 4.6 (3.5-5.0) g/dL Amylase 38 (30-110) U/L Lipase 67 (23-300) U/L Urine Color Light Yellow Urine Appearance Clear (Clear) Urine pH 5.0 (5.0-8.0) Ur Specific [place] 1.018 (1.001-1.035) Urine Protein Negative (Negative) Urine Glucose (UA) Negative (Negative) Urine Ketones Negative (Negative) Urine Blood Small H (Negative) Urine Nitrite Negative (Negative) Urine Bilirubin Negative (Negative) Urine Urobilinogen <2.0 (<2.0) mg/dL Ur Leukocyte Esterase Negative (Negative) Urine RBC 38 H (0-5) /hpf Urine WBC 4 (0-5) /hpf Urine Mucus Rare H (None) /hpf 04/20/24 Range/Units 08:16 WBC (3.8-10.6) k/uL RBC (4.30-5.90) m/uL Hgb (13.0-17.5) gm/dL Hct (39.0-53.0) % MCV (80.0-100.0) fL MCH (25.0-35.0) pg MCHC (31.0-37.0) g/dL RDW (11.5-15.5) % Plt Count (150-450) k/uL MPV Neutrophils % % Lymphocytes % % Monocytes % % Eosinophils % % Basophils % % Neutrophils # (1.3-7.7) k/uL Lymphocytes # (1.0-4.8) k/uL Monocytes # (0-1.0) k/uL Eosinophils # (0-0.7) k/uL Basophils # (0-0.2) k/uL Sodium (137-145) mmol/L Potassium (3.5-5.1) mmol/L Chloride (98-107) mmol/L Carbon Dioxide (22-30) mmol/L Anion Gap mmol/L BUN (9-20) mg/dL Creatinine (0.66-1.25) mg/dL Est GFR (CKD-EPI)AfAm (>60 ml/min/1.73 sqM) Est GFR (CKD-EPI)NonAf (>60 ml/min/1.73 sqM) Glucose (74-99) mg/dL Plasma Lactic Acid [place] 1.4 (0.7-2.0) mmol/L Calcium (8.4-10.2) mg/dL Total Bilirubin (0.2-1.3) mg/dL AST (17-59) U/L ALT (4-49) U/L Alkaline Phosphatase (38-126) U/L Total Protein (6.3-8.2) g/dL Albumin (3.5-5.0) g/dL Amylase (30-110) U/L Lipase (23-300) U/L Urine Color Urine Appearance (Clear) Urine pH (5.0-8.0) Ur Specific [place] (1.001-1.035) Urine Protein (Negative) Urine Glucose (UA) (Negative) Urine Ketones (Negative) Urine Blood (Negative) Urine Nitrite (Negative) Urine Bilirubin (Negative) Urine Urobilinogen (<2.0) mg/dL Ur Leukocyte Esterase (Negative) Urine RBC (0-5) /hpf Urine WBC (0-5) /hpf Urine Mucus (None) /hpf - Radiology Data Radiology results: report reviewed, image reviewed Disposition Clinical Impression: Left ureteral calculus Disposition: HOME SELF-CARE Instructions (If sedation given, give patient instructions): Renal Colic (ED), Ureteral Stones (ED) Additional Instructions: Return to the emergency department with any new, worsening, or concerning symptoms. Take your pain medication that you have at home. Follow-up with urology as listed below. Is patient prescribed a controlled substance at d/c from ED?: No Referrals: Camilo Victoria MD [Primary Care Provider] - 1-2 days Edi Ledezma MD [STAFF PHYSICIAN] - 1-2 days Time of Disposition: 09:48
[2024-04-20] MEDS: SODIUM CHLORIDE 0.9% 1,000 ML IV STA (08:27)
[2024-04-20] MEDS: KETOROLAC 15 MG/ML 1 ML VIAL IVP STA (08:27)
[2024-04-20] MEDS: ONDANSETRON 4 MG/2 ML VIAL IVP STA (08:28)
[2024-04-20] MEDS: MORPHINE SULFATE 4 MG/ML SYRINGE IVP STA (08:30)
[2024-04-20 08:33] LABS: Basophils # (A) 0.1 k/uL (0-0.2); Basophils % (A) 1 %; Eosinophils # (A) 0.3 k/uL (0-0.7); Eosinophils % (A) 4 %; HGB 14.8 gm/dL (13.0-17.5); Lymphocytes # (A) 1.8 k/uL (1.0-4.8); Lymphocytes % (A) 24 %; MCH 31.8 pg (25.0-35.0); MCHC 33.6 g/dL (31.0-37.0); MCV 94.8 fL (80.0-100.0); Mean Platelet Volume 6.7; Monocytes # (A) 0.5 k/uL (0-1.0); Monocytes % (A) 6 %; Neutrophils % (A) 65 %; Platelet Count 316 k/uL (150-450); RBC 4.64 m/uL (4.30-5.90); RDW 13.1 % (11.5-15.5); WBC 7.8 k/uL (3.8-10.6)
[2024-04-20 08:50] LABS: ALT 28 U/L (4-49); AST 31 U/L (17-59); African American GFR (CKD) 82 (>60 ml/min/1.73 sqM); Albumin 4.6 g/dL (3.5-5.0); Alkaline Phosphatase 65 U/L (38-126); Amylase 38 U/L (30-110); Anion Gap 8 mmol/L; Blood Urea Nitrogen 28 mg/dL (9-20); Calcium 9.9 mg/dL (8.4-10.2); Carbon Dioxide 27 mmol/L (22-30); Chloride 106 mmol/L (98-107); Glucose 131 mg/dL (74-99); Lipase 67 U/L (23-300); Non-African American GFR(CKD) 71 (>60 ml/min/1.73 sqM); Potassium 4.3 mmol/L (3.5-5.1); Sodium 141 mmol/L (137-145); Total Protein 7.2 g/dL (6.3-8.2)
--- NOTE | 2024-04-20 09:23 | CT ---
EXAMINATION TYPE: CT abdomen pelvis wo con DATE OF EXAM: 04/20/2024 COMPARISON: none HISTORY: LEFT FLANK PAIN Examination of the solid and hollow viscera is limited given the lack of contrast. FINDINGS: LUNG BASES: No evidence for nodule. No evidence for infiltrate. LIVER/GB: The gallbladder surgically absent. Hepatic cyst posterior segment right hepatic lobe measur ing 2.7 cm. PANCREAS: No pancreatic mass identified. No inflammatory process seen. SPLEEN: No evidence for splenomegaly. No intrasplenic lesions seen. ADRENALS: No adrenal nodules identified. No evidence for thickening. KIDNEYS: Moderate left-sided hydroureteronephrosis secondary to a left UVJ calculus measuring 1.1cm x 6.4 mm. There is left renal edema with perinephric stranding. Underlying infection is not excluded. Nonobstructing 2 mm calculus lower pole right kidney. Renal cortical cystic change right kidney. BOWEL: Appendix has a normal appearance. No evidence of bowel obstruction. No inflammatory process. Lymph nodes: No evidence for adenopathy greater than 1 cm. Abdominal aorta: Atheromatous changes seen. No evidence for aneurysm. Genital organs: No significant abnormality. Other: No significant abnormality. IMPRESSION: Moderate left-sided hydroureteronephrosis secondary to a left UVJ calculus measuring 1.1cm x 6.4 mm. There is left renal edema with perinephric stranding. Underlying infection is not excluded.
[2024-04-20 09:25] LABS: Appearance,Urine Clear (Clear); Bilirubin,Urine Negative (Negative); Blood,Urine Small (Negative); Color,Urine Light Yellow; Glucose,Urine (UA) Negative (Negative); Ketones,Urine Negative (Negative); Leukocyte Esterase,Urine Negative (Negative); Mucus,Urine Rare /hpf; Nitrite,Urine Negative (Negative); Protein,Urine Negative (Negative); RBC,Urine 38 /hpf (0-5); Specific Gravity,Urine 1.018 (1.001-1.035); Urobilinogen,Urine <2.0 mg/dL (<2.0); WBC,Urine 4 /hpf (0-5)
[2024-04-20 09:28] VITALS: BP 169/96; PULSE 69; RESP 18; TEMP 98.3
== END 2024-04-20 10:03 | disposition home or self-care (01) ==
LOC: EC 07:57
DX: N13.2 Hydronephrosis with renal and ureteral calculous obstruction (principal)
CPT/HCPCS: 36415; 74176; 80053; 81001; 82150; 83605; 83690; 85025; 96361; 96374; 96375; 99284

== ENCOUNTER 2024-05-11 19:46 | Emergency (ER) | payer MEDICARE ==
[2024-05-11 19:50] VITALS: RESP 18
[2024-05-11] MEDS: methylPREDNISolone SOD SUCCI 125 MG/2 ML VIAL IM ONE (20:36)
[2024-05-11] MEDS: HYDROmorphone 1 MG/ML 1 ML SYRINGE IM STA ×2 (20:36→22:34)
--- NOTE | 2024-05-11 21:32 | ED ---
Back Pain HPI - General Chief Complaint: Back Pain/Injury Stated Complaint: Back Pain Time Seen by Provider: 05/11/24 20:01 Source: patient, RN notes reviewed Limitations: no limitations - History of Present Illness Initial Comments: This is a 63-year-old male presents emergency department chief complaint of lumbar back pain that has been worsening over the past few weeks. Patient states that back pain started approximately 2 weeks ago after he was lifting a heavy object. Patient followed up with personal loan specialist outpatient where an x-ray was obtained and he was discharged with muscle relaxers and [place] and was scheduled outpatient for an MRI in addition to a follow-up appointment in 6 months. Patient states that he has been doing okay however the pain became exc ruciating today. He endorses pins and needle sensation of his groin and states that the pain radiates down his right leg and this feels numb. He denies any falls or injuries over the past 2 weeks aside from previously stated injury. He denies loss of bladder or bowel continence. He denies history of IV drug use. Denies previous back surgeries. - Related Data Home Medications Medication Instructions Recorded Confirmed Dextroamphetamine/Amphetamine 30 mg PO DAILY 10/16/15 08/09/17 [Adderall] Previous Rx's Medication Instructions Recorded oxyCODONE-APAP 5-325MG [Percocet 1 tab PO Q4HR PRN 3 Days #18 tab 05/11/24 5-325 mg] Allergies Allergy/AdvReac Type Severity Reaction Status Date / Time No Known Allergies Allergy Verified 05/11/24 19:50 Review of Systems ROS Statement: Those systems with pertinent positive or pertinent negative responses have been documented in the HPI. ROS Other: All systems not noted in ROS Statement are negative. Past Medical History Additional Past Medical History / Comment(s): kidney stones, History of Any Multi-Drug Resistant Organisms: None Reported Past Surgical History: Cholecystectomy, Orthopedic Surgery Past Psychological History: No Psychological Hx Reported Smoking Status: Never smoker Past Alcohol Use History: None Reported Past Drug Use History: None Reported General Exam Limitations: no limitations General appearance: alert, in no apparent distress Neck exam: Present: normal inspection. Absent: tenderness, meningismus, lymphadenopathy Respiratory exam: Present: normal lung sounds bilaterally. Absent: respiratory distress, wheezes, rales, rhonchi, stridor Cardiovascular Exam: Present: regular rate, normal rhythm, normal heart sounds. Absent: systolic murmur, diastolic murmur, rubs, gallop, clicks GI/Abdominal exam: Present: soft, normal bowel sounds. Absent: distended, tenderness, guarding, rebound, rigid Rectal exam: Present: normal inspection, normal rectal tone Extremities exam: Present: normal inspection, full ROM, normal capillary refill. Absent: tenderness, pedal edema, joint swelling, calf tenderness Back exam: Present: normal inspection, tenderness (lumbar spine with palpation) Expanded Back exam: Present: saddle anesthesia, normal rectal tone Neurological exam: Present: alert, oriented X3, CN II-XII intact Skin exam: Present: warm, dry, intact, normal color. Absent: rash Course Vital Signs 05/11/24 19:47 Temperature 97.7 F Pulse Rate 69 Respiratory 18 Rate Blood Pressure 156/81 O2 Sat by Pulse 99 Oximetry Medical Decision Making - Medical Decision Making Was pt. sent in by a medical professional or institution (, PA, CHEMICAL WORKER, urgent care, hospital, or senior care...) When possible be specific @ -No Did you speak to anyone other than the patient for history (EMS, parent, family, police, friend...)? What history was obtained from this source @ -No Did you review nursing and triage notes (agree or disagree)? Why? @ -I reviewed and agree with nursing and triage notes Were old charts reviewed (outside hosp., previous admission, EMS record, old EKG, old radiological studies, urgent care reports/EKG's, senior care records)? Report findings @ -No old charts were reviewed Differential Diagnosis (chest pain, altered mental status, abdominal pain women, abdominal pain men, vaginal bleeding, weakness, fever, dyspnea, syncope, headache, dizziness, GI bleed, back pain, seizure, CVA, palpatations, mental health, musculoskeletal)? @ -Differential Back Pain: Strain, zoster, cauda equina syndrome, epidural abscess, vertebral osteomyelitis, discitis, fracture, subluxation, disc herniation, DJD, spinal stenosis, dissection, AAA, pancreatitis, peptic ulcer disease, pyelonephritis, kidney stone, this is not meant to be an all-inclusive list. EKG interpreted by me (3pts min.). @ -None X-rays interpreted by me (1pt min.). @ -None done CT interpreted by me (1pt min.). @ -CT imaging of the lumbar spine no suspicious acute changes with anterior thecal sac flattening and spinal canal narrowing with lumbar spine foraminal stenosis. U/S interpreted by me (1pt. min.). @ -None done What testing was considered but not performed or refused? (CT, X-rays, U/S, labs )? Why? @ -None What meds were considered but not given or refused? Why? @ -None Did you discuss the management of the patient with other professionals (professionals i.e. , PA, CHEMICAL WORKER, lab, RT, psych nurse, social work program coordinator, payroll and benefits assistant, teacher, chief creative officer, case technician)? Give summary @ -No Was smoking cessation discussed for >3mins.? @ -No Was critical care preformed (if so, how long)? @ -No Were there social determinants of health that impacted care today? How? (Homelessness, low income, unemployed, alcoholism, drug addiction, transportation, low edu. Level, literacy, decrease access to med. care, detention, rehab)? @ -No Was there de-escalation of care discussed even if they declined (Discuss DNR or withdrawal of care, Hospice)? DNR status @ -No What co-morbidities impacted this encounter? (DM, HTN, Smoking, COPD, CAD, Cancer, CVA, ARF, Chemo, Hep., AIDS, mental health diagnosis, sleep apnea, morbid obesity)? @ -None Was patient admitted / discharged? Hospital course, mention meds given and route, prescriptions, significant lab abnormalities, going to OR and other pertinent info. @ -Discharged. 63-year-old male with lumbar back pain. Patient is in mild acute distress on exam due to severity of back pain. Patient is complaining of radicular symptoms with numbness and tingling down his bilateral lower extremities and pins and needle sensation in his groin. Anal tone is intact. He is provided with pain medication and will be sent for CT imaging. He is in agree with this plan. Patient is provided with additional dose of analgesics and steroids and will be resent a prescription for higher strength pain medication instructed to follow-up as scheduled outpatient with his orthopedic simulation specialist for continued further evaluation. Discussed with Dr. Walls. Undiagnosed new problem with uncertain prognosis? @ -No Drug Therapy requiring intensive monitoring for toxicity (Heparin, Nitro, Insulin, Cardizem)? @ -No Were any procedures done? @ -No Diagnosis/symptom? @ -Lumbar radicular pain Acute, or Chronic, or Acute on Chronic? @ -Acute Uncomplicated (without systemic symptoms) or Complicated (systemic symptoms)? @ -Uncomplicated Side effects of treatment? @ -No Exacerbation, Progression, or Severe Exacerbation? @ -No Poses a threat to life or bodily function? How? (Chest pain, [place], MS, pneumonia, PE, COPD, DKA, ARF, appy, cholecystitis, CVA, Diverticulitis, Homicidal, Suicidal, threat to staff... and all critical care pts) @ -No Disposition Clinical Impression: Lumbar radicular pain Disposition: HOME SELF-CARE Condition: Good Instructions (If sedation given, give patient instructions): Lumbar Radiculopathy (ED) Additional Instructions: Please return to the Emergency Department if symptoms worsen or any other concerns. Continue to follow-up outpatient with your orthopedic spine special ist for further evaluation. Take pain medication strictly only as needed. Do not combine this medication with muscle relaxant. Prescriptions: oxyCODONE-APAP 5-325MG [Percocet 5-325 mg] 1 tab PO Q4HR PRN 3 Days #18 tab PRN Reason: Severe Pain (Scale 7 To 10) Is patient prescribed a controlled substance at d/c from ED?: No Referrals: Camilo Victoria MD [Primary Care Provider] - 1-2 days Time of Disposition: 22:20
--- NOTE | 2024-05-11 22:02 | CT ---
EXAMINATION TYPE: CT lumbar spine wo con DATE OF EXAM: 05/11/2024 COMPARISON: None HISTORY: Pt arrived to ED for c/o lower back pain. Pt denies injury to back. Pt states seen by orthop edic doctor for back pain [address] DLP: 1672 mGycm CONTRAST: None TECHNIQUE: CT of the lumbar spine is performed on a spiral scan at 3 mm thick sections. Reconstructed images are performed in the coronal and sagittal planes. FINDINGS: Scoliosis present with convexity to the left centered at approximately L3. Spondylosis is p resent. Vertebral body heights are preserved. T12-L1: No focal disc herniation or significant disc bulge is evident. No spinal canal stenosis or neural foraminal stenosis is present. L1-L2: Mild disc bulge is present with anterior thecal sac flattening. No AP spinal canal stenosis is present. Facet hypertrophy is present. L2-L3: No focal disc herniation or significant disc bulge is evident. No spinal canal stenosis or n eural foraminal stenosis is present. Mild facet hypertrophy is present. L3-L4: There is loss of disc height this level. Residual disc bulges anterior thecal sac flattening. No AP spinal canal stenosis is present. Facet hypertrophy is present with posterior lateral thecal sa c impression. Left foramen is patent. Right foramen has moderate narrowing due to disc bulging. Some right lateral disc bulge is present contributing to the stenosis. L4-L5: Residual disc bulge has moderate anterior thecal sac flattening. No AP spinal canal stenosis i s present. Severe left and moderate to severe right foraminal stenosis is present. Some mild canal na rrowing may be present due to facet hypertrophy and congenitally short pedicles. L5-S1: Residual disc bulge has anterior thecal sac flattening. No AP spinal canal stenosis is present . Facet hypertrophy is present. Severe right and moderate left foraminal stenosis is present. IMPRESSION: 1. Multilevel degenerative disc changes with disc bulging causing anterior thecal sac flattening. 2. Facet hypertrophy through the lumbar spine. At L4-5 this is contributing to some mild spinal canal narrowing. 3. Lower lumbar spine foraminal stenosis. Correlate with radicular symptoms this appears most severe on the right at L5-S1 and severe on the left at L4-5 additional more moderate foraminal narrowing dis cussed above. 4. No suspicious acute changes. [facility], Workstation: [facility], 05/11/2024 9:59 PM
[2024-05-11] MEDS: DEXAMETHASONE SOD PHOSPHATE 4 MG/ML 1 ML VIAL IM STA (22:34)
[2024-05-11 22:45] VITALS: BP 142/80; PULSE 71; TEMP 97.8
== END 2024-05-11 22:45 | disposition home or self-care (01) ==
LOC: EC 19:46
DX: M51.16 Intervertebral disc disorders with radiculopathy, lumbar region (principal)
CPT/HCPCS: 72131; 96372; 99284

== ENCOUNTER 2024-06-07 13:16 | Emergency (ER) | payer MEDICARE ==
[2024-06-07 13:28] VITALS: TEMP 97.4
[2024-06-07 14:09] LABS: Appearance,Urine Clear (Clear); Bacteria,Urine Rare /hpf; Bilirubin,Urine Negative (Negative); Blood,Urine Large (Negative); Color,Urine Colorless; Glucose,Urine (UA) Negative (Negative); Ketones,Urine Negative (Negative); Leukocyte Esterase,Urine Negative (Negative); Nitrite,Urine Negative (Negative); PH, Urine 6.5 (5.0-8.0); Protein,Urine Trace (Negative); RBC,Urine 5 /hpf (0-5); Specific Gravity,Urine 1.005 (1.001-1.035); Squamous Epithelial Cell,Urine <1 /hpf (0-4); Urobilinogen,Urine <2.0 mg/dL (<2.0); WBC,Urine 1 /hpf (0-5)
--- NOTE | 2024-06-07 14:11 | ED ---
General Adult HPI - General Source: patient, RN notes reviewed Mode of arrival: ambulatory Limitations: no limitations <Anish Centeno - Last Filed: 06/07/24 14:10> <Kelvin Walls - Last Filed: 06/07/24 17:39> - General Chief complaint: Urogenital Stated complaint: Back pain, urogenital issues Time Seen by Provider: 06/07/24 13:35 - History of Present Illness Initial comments: Quick [id number] male presents emergency department complaint of flank pain, dysuria. Patient did have laminectomy outpatient on Friday. He states that he did not have a catheter. Patient states that he has extreme dysuria and pain on his right side. Patient did have some blood in his urine prior to surgery he was evaluated and found no signs infection proceeded with surgery. Patient has had kidney stones in the past but states he is unsure if this is similar pain. (Anish Centeno) - Related Data Home Medications Medication Instructions Recorded Confirmed Dextroamphetamine/Amphetamine 30 mg PO DAILY 10/16/15 08/09/17 [Adderall] Previous Rx's Medication Instructions Recorded oxyCODONE-APAP 5-325MG [Percocet 1 tab PO Q4HR PRN 3 Days #18 tab 05/11/24 5-325 mg] Allergies Allergy/AdvReac Type Severity Reaction Status Date / Time No Known Allergies Allergy Verified 05/11/24 19:50 Review of Systems ROS Other: All systems not noted in ROS Statement are negative. <Anish Centeno - Last Filed: 06/07/24 14:10> ROS Other: All systems not noted in ROS Statement are negative. <Kelvin Walls - Last Filed: 06/07/24 17:39> ROS Statement: Those systems with pertinent positive or pertinent negative responses have been documented in the HPI. Past Medical History Additional Past Medical History / Comment(s): kidney stones, History of Any Multi-Drug Resistant Organisms: None Reported Past Surgical History: Back Surgery, Cholecystectomy, Orthopedic Surgery Past Psychological History: No Psychological Hx Reported Smoking Status: Never smoker Past Alcohol Use History: None Reported Past Drug Use History: None Reported <Anish Centeno - Last Filed: 06/07/24 14:10> General Exam Limitations: no limitations <Anish Centeno - Last Filed: 06/07/24 14:10> - General Exam Comments Initial Comments: Visual Physical Exam Vital signs reviewed General: Well-appearing, nontoxic, no acute distress. Head: Normocephalic, atraumatic Eyes: PERRLA, EOMI ENT: Airway patent Chest: Nonlabored breathing Skin: No visual rash, normal skin tone Neuro: Alert and oriented 3 Musculoskeletal: No gross abnormalities (Anish Centeno) Course Vital Signs 06/07/24 13:25 Temperature 97.4 F L Pulse Rate 91 Respiratory 22 Rate Blood Pressure 143/84 O2 Sat by Pulse 96 Oximetry Medical Decision Making <Anish Centeno - Last Filed: 06/07/24 14:10> - Lab Data Result diagrams: 06/07/24 15:10 06/07/24 15:10 <Kelvin Walls - Last Filed: 06/07/24 17:39> - Medical Decision Making I completed the quick note portion of this chart signed Anish Centeno PA-C (Anish Centeno) - Lab Data Lab Results 06/07/24 06/07/24 06/07/24 Range/Units 13:30 15:10 15:10 WBC 11.7 H (3.8-10.6) k/uL RBC 4.37 (4.30-5.90) m/uL Hgb 13.8 (13.0-17.5) gm/dL Hct 41.5 (39.0-53.0) % MCV 94.9 (80.0-100.0) fL MCH 31.6 (25.0-35.0) pg MCHC 33.3 (31.0-37.0) g/dL RDW 12.4 (11.5-15.5) % Plt Count 304 (150-450) k/uL MPV 6.7 Neutrophils % 63 % Lymphocytes % 22 % Monocytes % 7 % Eosinophils % 5 % Basophils % 0 % Neutrophils # 7.4 (1.3-7.7) k/uL Lymphocytes # 2.6 (1.0-4.8) k/uL Monocytes # 0.9 (0-1.0) k/uL Eosinophils # 0.6 (0-0.7) k/uL Basophils # 0.1 (0-0.2) k/uL Sodium 137 (137-145) mmol/L Potassium 4.0 (3.5-5.1) mmol/L Chloride 101 (98-107) mmol/L Carbon Dioxide 28 (22-30) mmol/L Anion Gap 8 mmol/L BUN 21 H (9-20) mg/dL Creatinine 0.91 (0.66-1.25) mg/dL Est GFR (CKD-EPI)AfAm >90 (>60 ml/min/1.73 sqM) Est GFR (CKD-EPI)NonAf 88 (>60 ml/min/1.73 sqM) Glucose 132 H (74-99) mg/dL Calcium 9.4 (8.4-10.2) mg/dL Total Bilirubin 0.8 (0.2-1.3) mg/dL AST 74 H (17-59) U/L ALT 100 H (4-49) U/L Alkaline Phosphatase 95 (38-126) U/L Total Protein 6.9 (6.3-8.2) g/dL Albumin 4.2 (3.5-5.0) g/dL Urine Color Colorless Urine Appearance Clear (Clear) Urine pH 6.5 (5.0-8.0) Ur Specific Crane 1.005 (1.001-1.035) Urine Protein Trace H (Negative) Urine Glucose (UA) Negative (Negative) Urine Ketones Negative (Negative) Urine Blood Large H (Negative) Urine Nitrite Negative (Negative) Urine Bilirubin Negative (Negative) Urine Urobilinogen <2.0 (<2.0) mg/dL Ur Leukocyte Esterase Negative (Negative) Urine RBC 5 (0-5) /hpf Urine WBC 1 (0-5) /hpf Ur Squamous Epith Cells <1 (0-4) /hpf Urine Bacteria Rare H (None) /hpf Disposition <Anish Centeno - Last Filed: 06/07/24 14:10> Is patient prescribed a controlled substance at d/c from ED?: No Time of Disposition: 17:30 <Kelvin Walls - Last Filed: 06/07/24 17:39> Clinical Impression: Left ureteral calculus, Hydronephrosis, left, Urinary urgency Disposition: HOME SELF-CARE Condition: Good Referrals: Camilo Victoria MD [Primary Care Provider] - 1-2 days
[2024-06-07 15:28] LABS: Basophils # (A) 0.1 k/uL (0-0.2); Basophils % (A) 0 %; Eosinophils # (A) 0.6 k/uL (0-0.7); Eosinophils % (A) 5 %; HCT 41.5 % (39.0-53.0); HGB 13.8 gm/dL (13.0-17.5); Lymphocytes # (A) 2.6 k/uL (1.0-4.8); Lymphocytes % (A) 22 %; MCH 31.6 pg (25.0-35.0); MCHC 33.3 g/dL (31.0-37.0); MCV 94.9 fL (80.0-100.0); Mean Platelet Volume 6.7; Monocytes # (A) 0.9 k/uL (0-1.0); Monocytes % (A) 7 %; Neutrophils # (A) 7.4 k/uL (1.3-7.7); Neutrophils % (A) 63 %; Platelet Count 304 k/uL (150-450); RBC 4.37 m/uL (4.30-5.90); RDW 12.4 % (11.5-15.5); WBC 11.7 k/uL (3.8-10.6)
[2024-06-07] MEDS: HYDROmorphone 1 MG/ML 1 ML SYRINGE IM STA (15:44)
[2024-06-07] MEDS: KETOROLAC 15 MG/ML 1 ML VIAL IM STA (15:44)
[2024-06-07 15:45] LABS: ALT 100 U/L (4-49); AST 74 U/L (17-59); African American GFR (CKD) >90 (>60 ml/min/1.73 sqM); Albumin 4.2 g/dL (3.5-5.0); Alkaline Phosphatase 95 U/L (38-126); Anion Gap 8 mmol/L; Blood Urea Nitrogen 21 mg/dL (9-20); Calcium 9.4 mg/dL (8.4-10.2); Carbon Dioxide 28 mmol/L (22-30); Chloride 101 mmol/L (98-107); Glucose 132 mg/dL (74-99); Non-African American GFR(CKD) 88 (>60 ml/min/1.73 sqM); Sodium 137 mmol/L (137-145); Total Bilirubin 0.8 mg/dL (0.2-1.3); Total Protein 6.9 g/dL (6.3-8.2)
[2024-06-07] MEDS: SODIUM CHLORIDE 0.9% 500 ML 500 ML IV STA (16:58)
[2024-06-07] MEDS: SODIUM CHLORIDE 0.9% 1,000 ML IV STA (16:58)
--- NOTE | 2024-06-07 17:24 | CT ---
EXAMINATION TYPE: CT abdomen pelvis wo con DATE OF EXAM: 06/07/2024 5:08 PM COMPARISON: 04/20/2024. CLINICAL INDICATION: Male, 64 years old with history of pain; right flank pain TECHNIQUE: Axial CT abdomen pelvis wo con;Sagittal and coronal reformats were created on a separate workstation. Contrast used: mL of , (none if empty) Oral contrast used: without Oral Contrast (none if empty) CT DLP: 973.2 mGycm, Automated exposure control for dose reduction was used. FINDINGS: LOWER CHEST: Calcifications of the aortic valve present. ABDOMEN LIVER: Simple appearing hepatic cyst. GALLBLADDER AND BILE DUCTS: Unremarkable. PANCREAS: Unremarkable. SPLEEN: Unremarkable. ADRENAL GLANDS: Unremarkable. KIDNEYS AND URETERS: Mild left hydroureteronephrosis secondary obstructing ureterovesicular junction calculus measuring 11 x 5 mm. Additional nonobstructing right calculi measuring up to 2 mm. PELVIS BLADDER: No evidence for wall thickening or mass given limitations of exam. REPRODUCTIVE: Prostate is enlarged in size measuring 4.5 cm in transverse dimension. ABDOMEN & PELVIS STOMACH AND BOWEL: Scattered colonic diverticula. No evidence of bowel obstruction. PERITONEUM/RETROPERITONEUM: No evidence of pneumoperitoneum or free fluid. VASCULATURE: No evidence of aortic aneurysm. MUSCULOSKELETAL: No acute osseous abnormalities, left hip arthroplasty with hardware intact. Remote r ight transverse process of L1 fracture. LYMPH NODES: No gross evidence for lymphadenopathy. SOFT TISSUE/ABDOMINAL WALL: Fat-containing umbilical hernia. Fat-containing inguinal hernias bilatera lly left greater than right. IMPRESSION: 1. Mild left hydroureteronephrosis secondary obstructing ureterovesicular junction calculus measurin g 11 x 5 mm. 2. Colonic diverticulosis. [facility], , 06/07/2024 5:22 PM
[2024-06-07] MEDS: TAMSULOSIN 0.4 MG CAP.ER.24H PO STA (18:04)
[2024-06-07 18:54] VITALS: BP 137/91; PULSE 72; RESP 16
== END 2024-06-07 18:54 | disposition home or self-care (01) ==
LOC: EC 13:16
DX: N13.2 Hydronephrosis with renal and ureteral calculous obstruction (principal)
CPT/HCPCS: 36415; 74176; 80053; 81001; 85025; 96360; 96361; 96372; 99284

== ENCOUNTER → 2024-06-09 | Outpatient (CLI) | payer MEDICARE ==
--- NOTE | 2024-06-10 08:48 | XR ---
EXAMINATION TYPE: XR KUB DATE OF EXAM: 06/09/2024 3:22 PM COMPARISON: 07/25/2013 CLINICAL INDICATION: Male, 64 years old with history of N20.0 KIDNEY CALCULUS, , FINDINGS: Partially visualized total left hip arthroplasty. Mild degenerative change right hip. Heterotopic oss ification noted superior left hip. Degenerated levoconvex curvature mid to lower lumbar spine. Cholec ystectomy clips. A single mildly dilated small bowel loop left midabdomen with a caliber of 3.8 cm pr obably transient. No definite suspicious calcification is clearly identified. Lung bases are clear. N onobstructive bowel gas pattern. Minimal scattered stool. IMPRESSION: Unable to identify left UVJ stone radiographically. Probably due to hip tilt and overlying osseous st ructures. [facility], , 06/10/2024 8:46 AM
== END | disposition home or self-care (01) ==
LOC: RADXRMAIN 15:06
PROVIDERS: ATTEND Urology
CPT/HCPCS: 74018